=== PATIENT | male | born 1960 | race Caucasian/White ===

== ENCOUNTER 2016-09-20 08:52 | Emergency (ER) | payer OTHER ==
[~2016-09-20] VITALS: Ht 170.2 cm; Wt 97.5 kg
[~2016-09-20 08:52] MED LIST: ADVAIR HFA120 INHALA IH; AERONEB GO NEB1 EACH MC; ALBUTEROL SULF8.5 GM IH; AQUAPHOR OINTM105 GM TP; CLARITIN10 M3 PO; DESOWEN60 GM TP; DUONEB 2.5-0.5 M3 ML AEROSOL; FLEXERIL10 MG PO; HYDROCHLOROTHIA25 MG PO; HYDROCORTISONE30 G2 TP; KENALOG,ARISTOC80 G1 TP; KETOCONAZOLE120 ML TP; KETOCONAZOLE60 GM TP; LABETALOL HCL100 MG PO; LISINOPRIL10 MG PO; LISINOPRIL40 MG PO; METOPROLOL TART25 MG PO; MUCINEX600 MG PO; NAPROXEN500 MG PO; NIZORAL A-D120 ML TP; NIZORAL SHAMPO120 ML TP; PEPCID20 MG PO; PREDNISONE10 MG PO; PREDNISONE20 MG PO; VENTOLIN HFA18 GM IH
[2016-09-20 08:56] VITALS: BP 167/61
[2016-09-20] MEDS ORDERED: PREDNISONE20 MG PO (09:29)
[2016-09-20] MEDS ORDERED: NAPROXEN500 MG PO (09:29)
[2016-09-20] MEDS ORDERED: LIDODERM 5% P1 PATCH TD (09:29)
[2016-09-20] MEDS ORDERED: FLEXERIL10 MG PO (09:29)
== END 2016-09-20 10:20 | disposition home or self-care (01) ==
LOC: EXP 08:52 → EME 08:52 → EXP 10:20
DX: M54.31 Sciatica, right side (principal); Z91.040 Latex allergy status; Z88.0 Allergy status to penicillin; Z88.1 Allergy status to other antibiotic agents
CPT/HCPCS: 99281; 99283; J1885; J7512